=== PATIENT | female | born 1995 | race Hispanic/Latino ===

== ENCOUNTER 2017-05-05 01:59 | Outpatient (CLI) | payer OTHER | END 2017-05-05 02:00 | disposition home or self-care (01) | LOC: BICRAD 01:59 | PROVIDERS: ATTEND Family Medicine | DX: R05 Cough (principal); R09.89 Other specified symptoms and signs involving the circulatory and respiratory systems; R91.8 Other nonspecific abnormal finding of lung field | CPT/HCPCS: 71020 ==

== ENCOUNTER 2017-05-26 14:50 | Outpatient (CLI) | payer OTHER | END 2017-05-26 14:51 | disposition home or self-care (01) | LOC: BICRAD 14:50 | PROVIDERS: ATTEND Nurse Practitioner Family | DX: J18.9 Pneumonia, unspecified organism (principal); R91.8 Other nonspecific abnormal finding of lung field | CPT/HCPCS: 71046 ==